=== PATIENT | female | born 1990 | race Caucasian/White ===

== ENCOUNTER → 2017-11-27 20:52 | Observation (INO) ==
[2017-11-27 20:07] LABS: Amphetamine Screen,Urine Negative ng/mL (Cutoff=1000); Barbiturate Screen,Urine Negative ng/mL (Cutoff=200); Benzodiazepines Screen,Urine Negative ng/mL (Cutoff=200); Cannabinoid Screen,Urine Negative ng/mL (Cutoff = 50); Cocaine Screen,Urine Negative ng/mL (Cutoff= 300); Opiate Screen,Urine Negative ng/mL (Cutoff=300); Phencyclidine Screen,Urine Negative ng/mL (Cutoff=25)
[2017-11-27 20:26] LABS: Bilirubin,Urine Negative (Negative); Blood,Urine Negative (Negative); Clarity,Urine Clear (Clear); Color,Urine Yellow (Yellow); Glucose,Urine (UA) Normal (Normal); Ketones,Urine Negative (Negative); Leukocyte Esterase,Urine Negative (Negative); Nitrite,Urine Negative (Negative); PH,Urine 6.5 pH Units (5.0-8.0); Protein,Urine Negative (Neg-Trace); Specific Gravity,Urine 1.011 (1.010-1.025); Urobilinogen,Urine Normal (Normal)
--- NOTE | 2017-11-27 20:55 | OB/GYN Progress Note ---
Date of Encounter: 11/27/17 Time of Encounter: 20:52 - Assessment and Plan (1) Pruritus of in second trimester Current Visit: Yes Status: Acute Bile acids drawn, recommenced Benadryl at HS for symptoms management. Discharged home with movement and labor precautions. (2) 25 weeks gestation of Current Visit: Yes Status: Acute Subjective - Subjective Interval history: 25+3 presents to triage with complaints of itching on feet and palms of hands, .Pt states itching started a couple days ago and has gotten worse. Reports good movement, denies vaginal bleeding or leaking of fluid. Antepartum ROS: movement normal, no loss of fluid, no vaginal bleeding, no contractions Objective - Vital Signs Vital Signs: Intake and Output 11/27/17 11/27/17 11/27/17 07:59 15:59 23:59 Other: Weight 173.8 kg Patient Weight 11/27/17 23:59 Weight 173.8 kg - Exam FHR: auscultation normal FHR comments: Baseline 145 Abdomen: Present: soft, gravid
== END | disposition home or self-care (01) ==
LOC: 1NENULAB
PROVIDERS: ADMIT Obstetrics & Gynecology; ATTEND Obstetrics & Gynecology

== ENCOUNTER → 2018-01-23 20:57 | Observation (INO) ==
[2018-01-23 19:15] LABS: Bilirubin,Urine Negative (Negative); Blood,Urine Negative (Negative); Clarity,Urine Clear (Clear); Color,Urine Yellow (Yellow); Glucose,Urine (UA) Normal (Normal); Ketones,Urine Negative (Negative); Leukocyte Esterase,Urine Negative (Negative); Nitrite,Urine Negative (Negative); PH,Urine 6.5 pH Units (5.0-8.0); Protein,Urine Negative (Neg-Trace); Urobilinogen,Urine Normal (Normal)
[2018-01-23 19:25] LABS: Amphetamine Screen,Urine Negative ng/mL (Cutoff=1000); Barbiturate Screen,Urine Negative ng/mL (Cutoff=200); Benzodiazepines Screen,Urine Negative ng/mL (Cutoff=200); Cannabinoid Screen,Urine Negative ng/mL (Cutoff = 50); Cocaine Screen,Urine Negative ng/mL (Cutoff= 300); Opiate Screen,Urine Negative ng/mL (Cutoff=300); Phencyclidine Screen,Urine Negative ng/mL (Cutoff=25)
--- NOTE | 2018-01-23 21:02 | OB/GYN Progress Note ---
Date of Encounter: 01/23/18 Time of Encounter: 21:00 - Assessment and Plan (1) 33 weeks gestation of Current Visit: Yes Status: Acute Urine normal/ not indicative of UTI Vaginosis panel pending - patient wishes to be called if medication needed NST reactive Discharge home with labor precautions. Follow up in the office with routine care and PRN (2) NST (non-stress test) reactive Current Visit: Yes Status: Acute Subjective - Subjective Principal diagnosis: Back pain and cramping Interval history: Ms Levy is a at 33 weeks and 4 days gestation that presents to labor and delivery with c/o lower abdominal cramping, decreased movement, and low back pain x 1 day's duration. She denies headache, vision change, epigastric pain, leaking of fluid, vaginal bleeding, and vaginal discharge. She has been seen by Dr Bustamante for this . She is a gestational diabetic and has not been compliant with bringing her glucose logs with her to her appointments. Objective - Vital Signs Vital Signs: Intake and Output 01/23/18 01/23/18 01/23/18 07:59 15:59 23:59 Other: Weight 81.8 kg Patient Weight 01/23/18 23:59 Weight 81.8 kg - Exam FHR: auscultation normal, category 1 FHR comments: Category 1 tracing; Baseline 135 with uterine irritability noted. No contractions palpable Abdomen: Present: normal appearance, soft, gravid Uterus: Present: normal. Absent: firm, tenderness Cervical dilation: 1 Cervix effacement: thick station: high
[2018-01-23 21:50] LABS: Candida DNA Not Detected (Not Detect); Gardnerella DNA Not Detected (Not Detect); Trichomonas DNA Not Detected (Not Detect)
== END | disposition home or self-care (01) ==
LOC: 1NENULAB
PROVIDERS: ADMIT Advanced Practice Midwife; ATTEND Advanced Practice Midwife

== ENCOUNTER 2018-03-06 06:00 | Inpatient (IN) ==
[2018-03-06] MEDS ORDERED: Naloxone 0.4 MG/ML INJ IVP PRN (06:35)
[2018-03-06] MEDS ORDERED: Metoclopramide 10 MG/2 ML VIAL IVP PRN (06:35)
[2018-03-06] MEDS ORDERED: *HR* Nalbuphine 10 MG/ML AMPUL IVP PRN (06:35)
[2018-03-06] MEDS ORDERED: miSOPROStol 100 MCG TABLET PO PRN (06:35)
[2018-03-06] MEDS ORDERED: Famotidine 20 MG/2 ML VIAL IVP PRN (06:35)
[2018-03-06] MEDS ORDERED: Lidocaine 1% 20 ML MDV INFILT PRN (06:35)
[2018-03-06] MEDS ORDERED: Ondansetron 4 MG/2 ML VIAL IVP PRN ×2 (06:35→20:36)
[2018-03-06] MEDS ORDERED: Penicillin G Potassium 5,000,000 UNIT in 0.9 % Sodium Chloride Mini Bag 100 ML IVPB ONE (06:38)
[2018-03-06] MEDS ORDERED: Ringers Solution, Lactated 1,000 ML IVC SCH (06:45)
[2018-03-06 07:18] LABS: Basophils # 0.1 K/mcL (0.0-0.2); Basophils % 0.5 %; Eosinophils # 0.3 K/mcL (0.0-0.6); Eosinophils % 1.9 %; Hematocrit 34.1 % (35.3-44.9); Hemoglobin 11.4 g/dL (11.5-15.4); Immature Granulocytes % 0.7 % (0-4); Lymphocytes # 2.8 K/mcL (0.6-4.6); Lymphocytes % 21.2 %; Mean Corpuscular HGB Conc 33.4 g/dL (31.6-35.5); Mean Corpuscular Hemoglobin 29.9 pg (28.0-33.3); Mean Corpuscular Volume 89.5 fL (83.0-100.0); Mean Platelet Volume 11.3 fL (9.4-12.4); Monocytes # 1.5 K/mcL (0.0-1.3); Monocytes % 11.4 %; Neutrophils # 8.6 K/mcL (1.6-8.9); Platelet Count 275 K/mcL (140-400); Red Blood Count 3.81 M/mcL (3.82-4.97); Red Cell Distribution Width 12.6 % (11.5-14.5); Segmented Neutrophils % 64.3 %
[2018-03-06 07:28] LABS: Amphetamine Screen,Urine Negative ng/mL (Cutoff=1000); Barbiturate Screen,Urine Negative ng/mL (Cutoff=200); Benzodiazepines Screen,Urine Negative ng/mL (Cutoff=200); Cannabinoid Screen,Urine Negative ng/mL (Cutoff = 50); Cocaine Screen,Urine Negative ng/mL (Cutoff= 300); Opiate Screen,Urine Negative ng/mL (Cutoff=300); Phencyclidine Screen,Urine Negative ng/mL (Cutoff=25)
--- NOTE | 2018-03-06 08:56 | OB/GYN History & Physical ---
Date of Encounter: 03/06/18 Time of Encounter: 08:40 Assessment and Plan (1) 39 weeks gestation of Current visit: Yes Status: Acute 27 y/o @ 39+4 weeks, IOL for GDMA 2 initially on Metformin, now on Insulin(Novolin 8U AM/PM), GBS+/AB+ Plan: strict glucose monitoring with sugars preferably under 100 every hr, patient given 50mcg of PO cytotec, re-evaluate in 4 hrs, ok for epidural if she desires, she just received Nubain, will AROM with advanced cervical dilation, will receive Vanc for PCN allergy(no sensitivity done for clina and erythro), anticipate History of Present Illness HPI: Ms. Levy is a 27 year old female @ 39+4 weeks who presents to L&D for IOL for GDMA 2. She was initially on Metformin but had recurrent diarrhea so she was switched to Insulin. She takes Novolin 8U AM and PM and her sugars for the most part have been under control. She does not report LOF, VB or ctxs, feels good FM. Her last EFW on 02/04 was 2602g (58%). She is GBS+ with Keflex allergy a nd AB+. Past Med Surg Social Fam HX - Past Medical History Medical history: no medical history Psychiatric history: no psych history - Past Surgical History Surgical History: no surgical history Additional surgical history: endometerosis surgery x4, bilateral tube places, adenoids removed. - Social History Smoking Status: Current every day smoker Packs per day: 1/2 pack daily Smokeless Tobacco Status: No Alcohol use: none Drug use: none - Family History Mother Family Member Ethnicity: Non- Living Status: Still Living Hx Family Cardiac Disorders: No Hx Family Respiratory Disorders: No Hx Family Cancer: No Hx Family GI Disorders: No Hx Family Genitourinary Disorders: No Hx Family Endocrine Disorder: No Hx Family Musculoskeletal Disorders: No Hx Family Neuromuscular Disorders: No Hx Family Neurologic Disorders: No Hx Family HEENT Disorders: No Hx Family Autoimmune Disorders: No Hx Family Reproductive Disorders: No Hx Family Psychosocial Disorders: No Hx Family Medical Disorders: No Obstetrical History - Pregnancies : 6 Para: 2 Term: 2 Ab's: 3 Livin Medications and Allergies Pnv95/Ferrous Fumarate/FA [ Vitamin Tablet] 1 each PO DAILY 11/27/17 [History] Insulin NPH, HUMAN [HumuLIN N] 8 units SQ 03/06/18 [History] Allergy/AdvReac Type Severity Reaction Status Date / Time azithromycin [From Zithromax] Allergy Hives Verified 04/15/16 16:20 cephalexin [From Keflex] Allergy Difficulty Verified 04/15/16 16:20 Breathing clavulanic acid Allergy Difficulty Verified 04/15/16 16:20 [From Augmentin] Swallowing Review of System OB All systems PM: reviewed and no additional remarkable complaints except as stated Exam - Constitutional Constitutional: no acute distress - HEENT HEENT: PERRL - Neck Neck exam: full ROM - Lungs Respiratory exam: CTAB - Cardiovascular Cardiovascular exam: RRR - Abdomen Abdomen: Present: gravid - Cervix Dilation: 2 Effacement: 70 Results Result Diagrams: 03/06/18 06:52 03/06/18 06:52 Abnormal lab results WBC 13.4 K/mcL (4.3-11.1) H 03/06/18 06:52 RBC 3.81 M/mcL (3.82-4.97) L 03/06/18 06:52 Hgb 11.4 g/dL (11.5-15.4) L 03/06/18 06:52 Hct 34.1 % (35.3-44.9) L 03/06/18 06:52 Monocytes # 1.5 K/mcL (0.0-1.3) H 03/06/18 06:52 Glucose 114 mg/dL (70-105) H 03/06/18 06:52 All other labs normal. - VTE Reasons for not Prescribing Prophylaxis: Treatment not Indicated - Low risk for VTE
[2018-03-06] MEDS ORDERED: Penicillin G Potassium 2,500,000 UNIT in 0.9 % Sodium Chloride 100 ML IVPB SCH (10:30)
--- NOTE | 2018-03-06 12:11 | OB Labor Progress Note ---
Date of Encounter: 03/06/18 Time of Encounter: 12:09 Labor Progress Note - Subjective Subjective: patient is doing well - Vital Signs Vital Signs: VSS - Cervix Cervix: 3/80 - Heart Tones Heart Tones: CAT 1 - Interventions Interventions: ok for epidural if she desires, will start pitocin now, FS monitoring, normal so far, anticipate
[2018-03-06] MEDS ORDERED: Oxytocin 20 units/ LR 1000 mL 20 UNIT/1,000 ML BAG IVC SCH ×3 (12:15→23:03)
--- NOTE | 2018-03-06 12:56 | Anesthesia Evaluation PreOp ---
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 Other Medical History: Denies Any Significant HX, Other (Gestational diabetes with insulin coverage) Anesthesia History: No Prior Anesthetic Complications, Past Anesthesia : Yes Alcohol Use: none Drug use: none Medications and Allergies Pnv95/Ferrous Fumarate/FA [ Vitamin Tablet] 1 each PO DAILY 11/27/17 [History] Insulin NPH, HUMAN [HumuLIN N] 8 units SQ 03/06/18 [History] Allergy/AdvReac Type Severity Reaction Status Date / Time azithromycin [From Zithromax] Allergy Hives Verified 04/15/16 16:20 cephalexin [From Keflex] Allergy Difficulty Verified 04/15/16 16:20 Breathing clavulanic acid Allergy Difficulty Verified 04/15/16 16:20 [From Augmentin] Swallowing - Meds/Allergy Pre-op Review Medications Reviewed: Yes Allergies Reviewed: Yes Anesthesia Results - Labs 03/06/18 06:52 03/06/18 06:52 Anesthesia Exam BP 122/62 P 73 R 16 T 97.6 Height: 5'3" Weight: 82.2kg NPO (# of Hours): 5 Pain Scale: 3 Pain Scale Used: Numeric (1 - 10) - HEENT Pupil (Motor): Pupils equal Mallampati: II Teeth: Normal Oral Opening: Greater than 3 - 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
--- NOTE | 2018-03-06 14:49 | OB Labor Progress Note ---
Date of Encounter: 03/06/18 Time of Encounter: 14:46 Labor Progress Note - Subjective Subjective: patient wants to be checked to see if she will need an epidural - Vital Signs Vital Signs: VSS - Cervix Cervix: - Heart Tones Heart Tones: CAT 1 - Plan Plan: she wants Nubain first then epidural later, cont pitocin, now @ 6, FS 81, anticipate
[2018-03-06] MEDS ORDERED: *HR* FentaNYL (PF) 100 MCG/2 ML VIAL ONE (17:48)
[2018-03-06] MEDS ORDERED: Lidocaine -MPF 2% 5 ML VIAL ONE (17:48)
[2018-03-06] MEDS ORDERED: Epidural Premix (fent/bupiv) 110 ML EP ONE (17:56)
--- NOTE | 2018-03-06 18:14 | OB Labor Progress Note ---
Date of Encounter: 03/06/18 Time of Encounter: 18:12 Labor Progress Note - Subjective Subjective: patient had spontaneous rupture of membranes, wants epidural - Vital Signs Vital Signs: VSS - Cervix Cervix: deferred - Heart Tones Heart Tones: CAT 1 - Plan Plan: ok for epidural, anticipate
--- NOTE | 2018-03-06 18:41 | Anesthesia Procedures ---
Date of Encounter: 03/06/18 Time of Encounter: 17:55 Procedures: Anesthesia - Epidural/Spinal Patient ID/Chart reviewed: Yes Patient examined: Yes OB Eval: Gestational age: 39.4 OB Eval: : 6 OB Eval: Hx Para: 2 OB Eval: Dilated at (cm): 4 OB Eval: Contractions: Non-stressed pattern Consent Obtained: Yes Supplemental Oxygen: None/Room Air Site Prep: Aseptic Technique, Sterile prep and drape, Povidone-Iodine 1% Patient position: upright Local Anesthetic: Lidocaine 1% Amount of Local Anesthetic used: 3 Touhy Needle Gauge: 18 Touhy Needle Depth (cm): 6 Catheter Depth at Skin (cm): 15 Test Dose (1.5% Lido + Epi): Volume given (mls): 3 Test Dose Result: Negative Loading Dose: Fentanyl (mcg): 100 Loading Dose: Other: Ropivicaine 0.2% 10ml Loading Dose Administered: Thru Catheter Infusion Med: 0.125% Bupivacaine w/ 2 mcg/ml Fentanyl Infusion Rate (mls/hr): [address]: Tegaderm, Tape Interspace Used: L4-L5 Loss of Resistance (EMEKA): Yes Blood: No CSF: No Paresthesia: No Procedure: TYRONE placed 1st pass in upright position without any immediate noted complications. VSS and FHT stable throughout. Vitals + FHT's: 1755 BP 135/83 P 90 R 18 1836 BP 113/58 P 70 R 14 FHT 130s
--- NOTE | 2018-03-06 20:46 | OB Labor Progress Note ---
Date of Encounter: 03/06/18 Time of Encounter: 20:45 Labor Progress Note - Subjective Subjective: patient is on the birthing ball s/p SROM @ 1730hrs. - Vital Signs Vital Signs: VSS - Cervix Cervix: ant lip - Heart Tones Heart Tones: + - Plan Plan: anticipate
[2018-03-06] MEDS ORDERED: *HR* Ropivacaine/PF 0.2% 20 ML VIAL ONE (21:15)
[2018-03-06] MEDS ORDERED: Measles/Mumps/Rubella Vacc 0.5 ML VIAL SQ PRN (22:43)
[2018-03-06] MEDS ORDERED: Ibuprofen 600 MG TABLET PO PRN (22:43)
--- NOTE | 2018-03-06 22:43 | OB/GYN Procedure Note ---
Delivery - Delivery Date: 03/06/18 Provider: Bon Kay Intrapartum events: none Delivery induction: misoprostol Delivery augmentation: rupture of membranes Delivery monitor: external FHT, external uterine Anesthesia: epidural Quantitated Blood Loss: 150 - Repair Episiotomy: none Laceration Description: Perineal - 1st Degree - Complications Delivery complications: none - Disposition Mom disposition: stable in LDR [place] disposition: stable in LDR - Comments Comments: 27 y/o now delivered a viable female @ 2133hrs. delivered ADALID, nuchal cord x 1, weight 3145g (6lbs 15oz), APGARs 8/9. Placenta delivered @ 2138hrs, EBL 150cc. 1st degree laceration repaired with 3-0 vicryl. Mother and infant stable.
[2018-03-07] MEDS ORDERED: Measles/Mumps/Rubella Vacc 0.5 ML VIAL SQ PRN (01:42)
[2018-03-07] MEDS ORDERED: Oxytocin 20 units/ LR 1000 mL 20 UNIT/1,000 ML BAG IVC SCH (01:45)
[2018-03-07] MEDS: Ibuprofen 600 MG TABLET PO PRN ×2 (02:00→14:56)
[2018-03-07 06:15] LABS: Basophils # 0.1 K/mcL (0.0-0.2); Basophils % 0.5 %; Eosinophils # 0.3 K/mcL (0.0-0.6); Eosinophils % 1.6 %; Hematocrit 31.6 % (35.3-44.9); Hemoglobin 10.5 g/dL (11.5-15.4); Immature Granulocytes % 0.7 % (0-4); Lymphocytes # 4.4 K/mcL (0.6-4.6); Lymphocytes % 28.7 %; Mean Corpuscular HGB Conc 33.2 g/dL (31.6-35.5); Mean Corpuscular Volume 90.3 fL (83.0-100.0); Mean Platelet Volume 11.2 fL (9.4-12.4); Monocytes # 1.8 K/mcL (0.0-1.3); Monocytes % 11.7 %; Neutrophils # 8.8 K/mcL (1.6-8.9); Platelet Count 276 K/mcL (140-400); Red Cell Distribution Width 12.7 % (11.5-14.5); Segmented Neutrophils % 56.8 %
[2018-03-07] MEDS: Acetaminophen 325 MG TABLET PO PRN ×2 (07:46→21:31)
[2018-03-07] MEDS ORDERED: Prenatal Vit/FA 1 EACH TABLET PO SCH ×2 (09:00)
--- NOTE | 2018-03-07 09:34 | Discharge Summary ---
Date of Encounter: 03/07/18 Time of Encounter: 09:27 - Discharge Diagnosis (1) Status post vaginal delivery Priority: Secondary Status: Acute Comments: Status post day 1 Meeting day 1 milestones Pain is well controlled, cramping has decreased Ambulating without dizziness Voiding and passing flatus Lochia is light, discussed bleeding in post period and bleeding precautions Planning tubal ligation with Dr. Bustamante Mood is appropriate Healthy female doing well, bottle feeding Well to discharge Follow up in 4 weeks (2) 39 weeks gestation of Priority: Primary Status: Acute Comments: 27 y/o female, now Delivered at 39 weeks 4 days (3) Gestational diabetes mellitus (GDM), delivered Priority: Secondary Status: Acute Comments: GDM during this Controlled initially with metformin, wasn't tolerated so switched to insulin In post , glucose WNL Discussed glucose tolerance test in 6-8 weeks - Discharge Medications Prescriptions: RX: Ibuprofen [Motrin] 600 mg PO Q6HR PRN #30 tablet PRN Reason: Cramping RX: Docusate [Colace] 100 mg PO BID #30 capsule RX: Ferrous Sulfate 325 mg PO DAILY #90 tablet Home Medications: RX: Pnv95/Ferrous Fumarate/FA [ Vitamin Tablet] 1 each PO DAILY 11/27/17 [History] RX: Acetaminophen [Tylenol] 650 mg PO Q6HR PRN tablet 03/07/18 [Rx] RX: Docusate [Colace] 100 mg PO BID #30 capsule 03/07/18 [Rx] RX: Ferrous Sulfate 325 mg PO DAILY #90 tablet 03/07/18 [Rx] RX: Ibuprofen [Motrin] 600 mg PO Q6HR PRN #30 tablet 03/07/18 [Rx] Allergies/Adverse Reactions: Allergy/AdvReac Type Severity Reaction Status Date / Time azithromycin [From Zithromax] Allergy Hives Verified 04/15/16 16:20 cephalexin [From Keflex] Allergy Difficulty Verified 04/15/16 16:20 Breathing clavulanic acid Allergy Difficulty Verified 04/15/16 16:20 [From Augmentin] Swallowing Data Procedures and tests throughout hospitalization: Laboratory Tests 03/06/18 03/06/18 03/06/18 06:52 06:52 06:52 WBC 13.4 H RBC 3.81 L Hgb 11.4 L Hct 34.1 L MCV 89.5 MCH 29.9 MCHC 33.4 RDW 12.6 Plt Count 275 MPV 11.3 Immature Gran % 0.7 Seg Neutrophils % 64.3 Lymphocytes % 21.2 Monocytes % 11.4 Eosinophils % 1.9 Basophils % 0.5 Neutrophils # 8.6 Lymphocytes # 2.8 Monocytes # 1.5 H Eosinophils # 0.3 Basophils # 0.1 Glucose 114 H POC Glucose Urine Opiates Screen Negative Ur Barbiturates Screen Negative Ur Phencyclidine Scrn Negative Ur Amphetamines Screen Negative U Benzodiazepines Scrn Negative Urine Cocaine Screen Negative U Marijuana (THC) Screen Negative Ur Drug Screen Interp See Below Hep Bs Antigen 03/06/18 03/06/18 03/06/18 06:52 08:40 10:26 WBC RBC Hgb Hct MCV MCH MCHC RDW Plt Count MPV Immature Gran % Seg Neutrophils % Lymphocytes % Monocytes % Eosinophils % Basophils % Neutrophils # Lymphocytes # Monocytes # Eosinophils # Basophils # Glucose POC Glucose 99 85 Urine Opiates Screen Ur Barbiturates Screen Ur Phencyclidine Scrn Ur Amphetamines Screen U Benzodiazepines Scrn Urine Cocaine Screen U Marijuana (THC) Screen Ur Drug Screen Interp Hep Bs Antigen Nonreactive 03/06/18 03/06/18 03/06/18 12:38 14:40 19:23 WBC RBC Hgb Hct MCV MCH MCHC RDW Plt Count MPV Immature Gran % Seg Neutrophils % Lymphocytes % Monocytes % Eosinophils % Basophils % Neutrophils # Lymphocytes # Monocytes # Eosinophils # Basophils # Glucose POC Glucose 90 81 80 Urine Opiates Screen Ur Barbiturates Screen Ur Phencyclidine Scrn Ur Amphetamines Screen U Benzodiazepines Scrn Urine Cocaine Screen U Marijuana (THC) Screen Ur Drug Screen Interp Hep Bs Antigen 03/07/18 03/07/18 06:04 07:36 WBC 15.5 H RBC 3.50 L Hgb 10.5 L Hct 31.6 L MCV 90.3 MCH 30.0 MCHC 33.2 RDW 12.7 Plt Count 276 MPV 11.2 Immature Gran % 0.7 Seg Neutrophils % 56.8 Lymphocytes % 28.7 Monocytes % 11.7 Eosinophils % 1.6 Basophils % 0.5 Neutrophils # 8.8 Lymphocytes # 4.4 Monocytes # 1.8 H Eosinophils # 0.3 Basophils # 0.1 Glucose POC Glucose 75 Urine Opiates Screen Ur Barbiturates Screen Ur Phencyclidine Scrn Ur Amphetamines Screen U Benzodiazepines Scrn Urine Cocaine Screen U Marijuana (THC) Screen Ur Drug Screen Interp Hep Bs Antigen Labs on day of discharge: Labs from last 24 hours 03/07/18 03/07/18 03/06/18 07:36 06:04 19:23 WBC 15.5 H RBC 3.50 L Hgb 10.5 L Hct 31.6 L MCV 90.3 MCH 30.0 MCHC 33.2 RDW 12.7 Plt Count 276 MPV 11.2 Immature Gran % 0.7 Seg Neutrophils % 56.8 Lymphocytes % 28.7 Monocytes % 11.7 Eosinophils % 1.6 Basophils % 0.5 Neutrophils # 8.8 Lymphocytes # 4.4 Monocytes # 1.8 H Eosinophils # 0.3 Basophils # 0.1 POC Glucose 75 80 03/06/18 03/06/18 03/06/18 14:40 12:38 10:26 WBC RBC Hgb Hct MCV MCH MCHC RDW Plt Count MPV Immature Gran % Seg Neutrophils % Lymphocytes % Monocytes % Eosinophils % Basophils % Neutrophils # Lymphocytes # Monocytes # Eosinophils # Basophils # POC Glucose 81 90 85 Date of admission: 03/06/18 06:03 Consults: 03/07/18 01:42 Consult to [facility] [CONS] Routine Comment: Vaginal delivery, consult needed Discharging clinician: Rhiannon Gomez Anticipated date of discharge: 03/07/18 - Patient Status Disposition: Home, Self-Care Condition: Good Functional capacity at discharge: independent ambulation Overall status at discharge: patient is back to baseline - Discharge Instructions Follow Up With: NONE,PCP [Primary Care Provider] - Andriy Bustamante DO [Partnered Physician] - - Diet and Activity Activity: resume usual activities as tolerated Diet: advance to your usual diet Hospital Course Reason for admission: induction of labor Delivery: Episiotomy: none Laceration: 1st degree (1st degree perineal laceration repaired) Other procedures: none complications: perineal laceration Discharge diagnosis: IUP at term delivered baby: female Hospital course: 27 y/o now delivered a viable female @ 2133hrs. Infant delivered ADALID, nuchal cord x 1, weight 3145g (6lbs 15oz), APGARs 8/9. Placenta delivered @ 2138hrs, EBL 150cc. 1st degree laceration repaired with 3-0 vicryl. Mother and infant stable. Time Attestation: Total time spent providing and/or coordinating discharge services: Time Spent: Greater than 30 minutes Exam - Constitutional Vitals: Temp Pulse Resp BP Pulse Ox 97.8 F 51 16 100/62 98 03/07/18 07:30 03/07/18 07:30 03/07/18 07:30 03/07/18 07:30 03/07/18 02:40 General appearance IM: A&O X 3, pleasant, answers questions appropriately - Respiratory Respiratory exam: Present: CTAB. Absent: rales, rhonchi, wheezes - Cardiovascular Cardiovascular exam IM: Present: RRR, +S1, +S2 - GI/Abdominal GI/Abdominal exam IM: normal bowel sounds, soft - Uterine Tone: Firm Uterus Position: At Umbilicus - Extremities Exam Extremities exam IM: Present: normal inspection, warm. Absent: calf tenderness - Neurological Exam Neurological exam: CN II-XII intact, oriented X3, no focal deficits - Psychiatric Additional comments: mood is appropriate - Attending Attestation I saw this patient and agree with assessment. Deny Miner CNM
[2018-03-07 20:38] VITALS: BP 113/71
== END 2018-03-07 22:45 | disposition home or self-care (01) | DRG 560 ==
LOC: 1NENULAB 06:03 → 1NENUOBS 03-07 00:25
PROVIDERS: ADMIT Registered Nurse; ATTEND Registered Nurse